=== PATIENT | male | born 1995 | race Caucasian/White ===

== ENCOUNTER 2024-11-30 19:31 | Emergency (ER) | payer OTHER, SELFPAY ==
[2024-11-30] VITALS (7 sets, daily range): BP systolic 115–134; BP diastolic 66–90; PULSE 70–102; RESP 15–18; TEMP 36.7; O2SAT 93–99; BMI 27.8
--- NOTE | 2024-11-30 20:45 | CTR_ITS ---
PROCEDURE INFORMATION: Exam: CT Abdomen And Pelvis With Contrast Exam date and time: 11/30/2024 9:17 PM Age: 29 years old Clinical indication: Condition or disease; Other: Esbl; Additional info: Abdominal pain; Bloody stools, reported bloody emesis TECHNIQUE: Imaging protocol: Computed tomography of the abdomen and pelvis with contrast. Radiation optimization: All CT scans at this facility use at least one of these dose optimization techniques: automated exposure control; mA and/or kV adjustment per patient size (includes targeted exams where dose is matched to clinical indication); or iterative reconstruction. Contrast material: OMNI 350; Contrast volume: 100 ml; Contrast route: INTRAVENOUS (IV); COMPARISON: No relevant prior studies available. RADIATION DOSE METRICS: Total DLP (mGy-cm): 828.76 FINDINGS: Lungs: Bibasilar atelectasis. Liver: Hepatic steatosis. Gallbladder and biliary ducts: Normal. No calcified stones. No ductal dilation. Pancreas: Normal. No ductal dilation. Spleen: Normal. No splenomegaly. Adrenal glands: Normal. No mass. Kidneys and ureters: Left kidney nonobstructing calyceal stone. Stomach and bowel: Mid sigmoid colon wall thickening, please correlate for colitis. Gastric wall thickening, please correlate for gastritis. Appendix: No evidence of appendicitis. Intraperitoneal space: Unremarkable. No free air. No significant fluid collection. Vasculature: Unremarkable. No abdominal aortic aneurysm. Lymph nodes: Unremarkable. No enlarged lymph nodes. Urinary bladder: Unremarkable as visualized. Reproductive: Unremarkable as visualized. Bones/joints: Unremarkable. No acute fracture. Soft tissues: Unremarkable. CT/CT abdomen pelvis w con* [id number] IMPRESSION: 1. Mid sigmoid colon wall thickening, please correlate for colitis. 2. Gastric wall thickening, please correlate for gastritis. 3. Bibasilar atelectasis. 4. Hepatic steatosis. 5. Left kidney nonobstructing calyceal stone.
--- NOTE | 2024-11-30 20:46 | ED_ITS ---
HPI - Abdominal Pain 2 General: Chief Complaint: Abdominal Pain Stated Complaint: vomiting and urinating blood, bloody stool Time Seen by Provider: 11/30/24 20:22 Source: patient Mode of arrival: ambulatory Limitations: no limitations History of Present Illness: Patient is a 29-year-old male here for a plethora of medical complaints. He first off starts by telling me that earlier last month he was diagnosed with an ESBL acute cystitis and was apparently hospitalized for this. 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 He states since discharge he has been following up with his employment case manager through [employer] and does have follow up with urology for cystoscopy. He states this morning he had 6 episodes of bright red blood per rectum that he quantifies as a half a cup per bowel movement. He also states he has been having (starting today also) bright red bloody emesis-approximately 6 episodes. He is having lower abdominal pain. He contacted his laborer who was concerned he could be septic so told him to come to the emergency department. He is not on anticoagulation. Denies NSAID use or alcohol use. He has no history of GI bleeds. His vital signs are completely normal upon arrival. He also has complaints of chest pain or shortness of breath. MD elicited complaint: abdominal pain Onset (ago): hour(s) Pain Consistency: constant Location: Diffuse Severity: moderate Quality: cramping and sharp Radiation: none Migration to: no migration Exacerbating factors: nothing Relieving factors: nothing Associated Symptoms: Reports hematochezia, hematemesis and vomiting; Denies chills, diarrhea, dysuria, fever(s), heartburn, hematuria, nausea and syncope Related Data Previous Rx's ?Medication ?Instructions ?Recorded amoxicillin 875 mg-potassium 1 tab PO BID #14 tabs 08/25 clavulanate 125 mg tablet pantoprazole 40 mg tablet,delayed 40 mg PO DAILY 4 wejustus tx #28 tabs 11/30/24 release (Protonix) Allergies Allergy/AdvReac Type Severity Reaction Status Date / Time No Known Allergies Allergy Verified 11/30/24 19:44 Review of Systems 2 Const: Denies: fever(s), chills, body aches, fatigue or malaise Eyes: Denies: change in vision or blurry vision Card: Reports: chest pain; Denies: palpitations, irregular heart rhythm, lightheadedness, syncope or dyspnea on exertion Resp: Reports: dyspnea; Denies: productive cough or pain on inspiration GI: Reports: abdominal pain, vomiting, hematemesis and hematochezia; Denies: nausea, heartburn or diarrhea : Denies: flank pain, difficulty urinating, dysuria, urinary frequency, urinary urgency, urinary hesitancy or hematuria Musc: Denies: neck pain, back pain, extremity pain, extremity swelling or joint pain Skin/Breast: Denies: rash Neuro: Denies: headache(s), numbness in extremities, weakness in extremities or sensory changes Physical Exam 2 Const: COMMON NORMALS: no acute distress, average body habitus, patient oriented x3, no limitations, healthy appearing, alert and well nourished G ENERAL APPEARANCE: cooperative ORIENTATION/CONSCIOUSNESS: Yes awake, Yes oriented to person, Yes oriented to place and Yes oriented to time HENMT: COMMON NORMALS: normocephalic and atraumatic HEAD & SCALP: normal to inspection, normocephalic and atraumatic Eye: GENERAL EYE: appearance normal, both eyes and all related structures and normal light reflex DIRECT OPHTHALMOSCOPY: Yes normal light reflex Neck/C-Spine: COMMON NORMALS: full ROM, no lymphadenopathy, supple and no meningeal signs Chest: COMMONS NORMALS: normal inspection of the chest Resp: COMMON NORMALS: normal respiratory effort and clear to auscultation bilaterally AUSCULTATION: clear to auscultation bilaterally Cardio: COMMON NORMALS: regular rate and regular rhythm RATE: regular rate RHYTHM: regular rhythm GI: COMMON NORMALS: Normal to inspection, nondistended, normoactive bowel sounds present, Soft to palpation, No hepatosplenomegaly present and no masses INSPECTION: Yes normal to inspection AUSCULTATION: Yes normoactive bowel sounds PALPATION: Yes Soft to palpation, Yes Tenderness to palpation present (GI) (across lower abdomen), No Guarding due to palpation present (GI), No Rigid due to palpation and Yes No hepatosplenomegaly present RECTAL EXAM: Yes heme positive stool (faintly ) trace and Yes hemorrhoids (multiple non-thrombosed external hemorrhoids) : COMMON NORMALS: Yes no CVA tenderness BLADDER/KIDNEY EXAM: Yes no CVA tenderness Back/Pelvis: COMMON NORMALS: no CVA tenderness and thoracic and lumbar spine normal to inspection Extremity: COMMON NORMALS: normal to inspection GENERAL: Yes normal exam except as noted Neuro: SANDRINE COMA SCALE: document GCS findings Sandrine coma scale eye opening: Spontaneous Sandrine coma scale verbal response: Orientated Sandrine coma scale motor response: Obey commands Sandrine coma scale total score: 15 COMMON NORMALS: patient oriented x3, moves all extremities, no focal motor deficits and no sensory deficits noted SENSORIUM/ORIENTATION: Yes alert, Yes oriented to person, Yes oriented to place and Yes oriented to time MENINGEAL SIGNS: Yes no meningeal signs Skin: COMMON NORMALS: no rashes or lesions noted GENERAL SKIN EXAM: no rashes or lesions noted Course 2 Vital Signs: Vital signs: Vital Signs Temperature 98.1 F 11/30/24 19:40 Pulse Rate 93 11/30/24 19:40 Respiratory Rate 16 11/30/24 19:40 Blood Pressure 125/82 11/30/24 19:40 Pulse Oximetry 99 11/30/24 19:40 Oxygen Delivery Me thod Room Air 11/30/24 19:40 MDM - Abdominal Pain Medical Decision Making Patient has clinically appeared in absolutely no acute distress during his ED stay. His vital signs have been completely normal. He has not had a single episode of hematemesis or hematochezia. He does have some blood work from his last hospitalization in early October. His hemoglobin at that time was 13.9 which is exactly what it is today. He does have a very faintly positive Hemoccult. He does have multiple external nonthrombosed hemorrhoids which I suspect is probably the source of his bleeding although his CT scan does mention some mild colitis. He is also reporting hematemesis-again has not had any episodes here. CT scan did mention some degree of gastric wall thickening with correlation for gastritis. He denies anti-inflammatory use or alcohol. Remainder of blood work overall is unremarkable. His UA with color interference as he has been taking Azo-he is not having UTI-like symptoms/will attempt culture. At this time I will place him on medications for possible colitis/gastritis and have him follow-up with GI/general surgery for endoscopy/colonoscopy evaluation. He was given strict return precautions. He already has follow-up scheduled with urology as well as primary care. Medical Records I reviewed the patient's medical records. Lab Data I reviewed the patient's lab results. 11/30/24 20:20 11/30/24 20:20 Labs/Radiology: Radiology Impressions Abdomen/Pelvis CT 11/30/24 20:45 IMPRESSION: 1. Mid sigmoid colon wall thickening, please correlate for colitis. 2. Gastric wall thickening, please correlate for gastritis. 3. Bibasilar atelectasis. 4. Hepatic steatosis. 5. Left kidney nonobstructing calyceal stone. Laboratory Results WBC 14.81 10^3/uL (3.29-11.43) H 11/30/24 20:20 RBC 4.49 10^6/uL (3.85-5.65) 11/30/24 20:20 Hgb 13.90 g/dL (11.27-16.99) 11/30/24 20:20 Hct 42.3 % (37-53) 11/30/24 20:20 MCV 94.2 fl (82-101) 11/30/24 20:20 MCH 31.0 pg (27-33) 11/30/24 20:20 MCHC 32.9 g/dL (30-55) 11/30/24 20:20 RDW 13.7 % (12.1-15.1) 11/30/24 20:20 Plt Count 317 10^3/cmm (157-399) 11/30/24 20:20 MPV 8.9 fL (7.4-10.4) 11/30/24 20:20 Neut % (Auto) 72.6 % 11/30/24 20:20 Lymph % (Auto) 19.3 % 11/30/24 20:20 [place] % (Auto) 6.7 % 11/30/24 20:20 Eos % (Auto) 0.5 % 11/30/24 20:20 Baso % (Auto) 0.4 % 11/30/24 20:20 Neut # (Auto) 10.75 10^3/uL (1.8-7.7) H 11/30/24 20:20 Lymph # (Auto) 2.9 10^3/uL (0.8-4.8) 11/30/24 20:20 [place] # (Auto) 1.0 10^3/uL (0.2-0.9) H 11/30/24 20:20 Eos # (Auto) 0.1 10^3/uL (0.0-0.8) 11/30/24 20:20 Baso # (Auto) 0.1 10^3/uL (0.0-0.1) 11/30/24 20:20 Nucleated RBC % (auto) 0 % 11/30/24 20:20 Nucleated RBCs # 0.0 /100WBC 11/30/24 20:20 PT 12.90 SECONDS (12.1-14.9) 11/30/24 20:20 INR 0.91 (0.8-1.2) 11/30/24 20:20 Sodium 141 mmol/L (136-145) 11/30/24 20:20 Potassium 4.0 mmol/L (3.5-5.1) 11/30/24 20:20 Chloride 103 mmol/L (98-107) 11/30/24 20:20 Carbon Dioxide 25 mmol/L (22-29) 11/30/24 20:20 Anion Gap 17.0 (5-19) 11/30/24 20:20 BUN 11 mg/dL (6-20) 11/30/24 20:20 Creatinine 0.9 mg/dL (0.7-1.2) 11/30/24 20:20 GFR Calculation 98.4 mL/min (90-130) 11/30/24 20:20 Glucose 95 mg/dL (65-115) 11/30/24 20:20 Calculated Osmolality 291 mOsm/kg (285-295) 11/30/24 20:20 Calcium 9.0 mg/dL (8.5-10.5) 11/30/24 20:20 Total Bilirubin 0.2 mg/dL (0.15-1.2) 11/30/24 20:20 AST 17 U/L (0-40) 11/30/24 20:20 ALT 24 U/L (0-41) 11/30/24 20:20 Alkaline Phosphatase 86 U/L (40-130) 11/30/24 20:20 Troponin T Baseline < 6 ng/L (0-15) 11/30/24 20:20 Troponin T 120 Minute < 6.0 ng/L (0-15) 11/30/24 22:16 Delta Troponin T 0 ABS# (0-10) 11/30/24 22:16 Total Protein 7.1 g/dL (6.6-8.7) 11/30/24 20:20 Albumin 4.3 g/dL (3.5-5.2) 11/30/24 20:20 Globulin 2.8 g/dL (1.3-4.6) 11/30/24 20:20 Lipase 27 U/L (13-60) 11/30/24 20:[address] [place] (Yellow) A 11/30/24 22:20 Urine Appearance Clear (CLEAR) 11/30/24 22:20 Urine pH 5.5 (5-7) 11/30/24 22:20 Ur Specific [place] 1.074 (1.005-1.030) H 11/30/24 22:20 Urine Protein 1+ (Negative) A 11/30/24 22:20 Urine Glucose (UA) Negative (Normal) 11/30/24 22:20 Urine Ketones Negative (Negative) 11/30/24 22:20 Urine Blood Non-haemolysed trace (Negative) 11/30/24 22:20 Urine Nitrate Positive (Negative) A 11/30/24 22:20 Urine Bilirubin 1+ (Negative) H 11/30/24 22:20 Urine Urobilinogen 1.0 mg/dL (Negative) 11/30/24 22:20 Ur Leukocyte Esterase 1+ (Negative) A 11/30/24 22:20 Urine RBC 3-5 /hpf (0-2) 11/30/24 22:20 Urine WBC 6-10 /hpf (0-5) 11/30/24 22:20 Ur Squamous Epith Cells 0-5 /hpf (0-5) 11/30/24 22:20 Amorphous Sediment Not Reportable 11/30/24 22:20 Urine Bacteria None seen /hpf (NONE) 11/30/24 22:20 Hyaline Casts 0-4 /lpf H 11/30/24 22:20 All radiology interpretation(s) finalized by discharge Discharge Plan Discharge Patient Disposition: Home Clinical Impression: Colitis Gastritis Qualifiers: Gastritis type: unspecified gastritis Chronicity: acute Gastritis bleeding: w ith bleeding Qualified Code(s): K29.01 - Acute gastritis with bleeding Condition: Stable Prescriptions: New pantoprazole [Protonix] 40 mg tablet,delayed release (DR/EC) 40 mg PO DAILY 28 Days Qty: 28 0RF amoxicillin-pot clavulanate 875-125 mg tablet 1 tab PO BID Qty: 14 0RF Discharge Orders: Discharge ED (Routine); Ordered 11/30/24 Ordered By: Eliza Pfeiffer Patient Instructions: Gastritis (DC), Hemorrhoids (DC), Colitis (ED) Activity Restrictions/Additional Instructions: As we discussed, I will place a referral for GI/general surgery for evaluation for an endoscopy/colonoscopy for further evaluation of your bleeding. They can also evaluate your hemorrhoids and offer any further treatment options. We discussed stool softeners and stool consistency to avoid straining. We will place you on medications to help with the gastritis/colitis findings on your CT scan today. Continue plan to follow-up with urology. You may return to the emergency department for worsening bleeding, lightheadedness, dizziness, fevers, worsening or severe abdominal pain, generally feeling worse or unwell, or any other concerns you may have. Print Language: Taiwanese Coding Level of Care Code ED Roof Bolter Operator for Eda Reyez
[2024-11-30 20:53] LABS: Basophils # 0.1 10^3/uL (0.0-0.1); Basophils % 0.4 %; Eosinophils # 0.1 10^3/uL (0.0-0.8); Eosinophils % 0.5 %; Hematocrit 42.3 % (37-53); Lymphocytes # 2.9 10^3/uL (0.8-4.8); Lymphocytes % 19.3 %; Mean Corpuscular HGB Conc 32.9 g/dL (30-55); Mean Corpuscular Volume 94.2 fl (82-101); Mean Platelet Volume 8.9 fL (7.4-10.4); Monocytes % 6.7 %; Neutrophils # 10.75 10^3/uL (1.8-7.7); Neutrophils % 72.6 %; Nucleated Red Blood Cells % 0 %; Platelet Count 317 10^3/cmm (157-399); Red Blood Count 4.49 10^6/uL (3.85-5.65); Red Cell Distribution Width 13.7 % (12.1-15.1); White Blood Count 14.81 10^3/uL (3.29-11.43)
[2024-11-30 21:04] LABS: INR 0.91 (0.8-1.2)
[2024-11-30 21:10] LABS: Alanine Aminotransferase 24 U/L (0-41); Albumin Level 4.3 g/dL (3.5-5.2); Alkaline Phosphatase 86 U/L (40-130); Aspartate Amino Transferase 17 U/L (0-40); Blood Urea Nitrogen 11 mg/dL (6-20); Carbon Dioxide 25 mmol/L (22-29); Chloride 103 mmol/L (98-107); Creatinine Clr Calc Pharmacy 137.0359; Globulin 2.8 g/dL (1.3-4.6); Glomerular Filtration Rate 98.4 mL/min (90-130); Glucose 95 mg/dL (65-115); Lipase 27 U/L (13-60); Osmolality Calculated 291 mOsm/kg (285-295); Sodium 141 mmol/L (136-145); Total Bilirubin 0.2 mg/dL (0.15-1.2); Total Protein 7.1 g/dL (6.6-8.7); Troponin(5th) Baseline < 6 ng/L (0-15)
[2024-11-30] MEDS: iohexol 350 mg/mL 500 mL Btl (per mL) IV (21:13)
[2024-11-30] MEDS: sodium chloride 0.9% 1,000 ML 999 ML IV (21:53)
--- NOTE | 2024-11-30 22:22 | ECG_ITS ---
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 Measurements Intervals [place] Rate: 67 P: 36 CA: 152 QRS: 35 QRSD: 91 T: 22 QT: 400 QTc: 425 Interpretive Statements SINUS RHYTHM WITH SINUS ARRHYTHMIA No previous ECG available for comparison Electronically Signed On 12-01-2024 11:34:53 CDT by Bruce Gallardo M.D. [email or web address]
[2024-11-30 22:35] LABS: Bilirubin Urine 1+ (Negative); Blood Urine Non-haemolysed trace (Negative); Glucose Urine UA Negative (Normal); Ketones Urine Negative (Negative); Leukocyte Esterase Urine 1+ (Negative); Nitrate Urine Positive (Negative); Protein Urine 1+ (Negative); Urine Appearance Clear (CLEAR); pH Urine 5.5 (5-7)
[2024-11-30 22:37] LABS: Add Urine Microscopic? YES; Bacteria Urine None Seen /hpf; Hyaline Casts Urine 0-4 /lpf; Squamous Epithelial Cell Urine 0-5 /hpf (0-5)
[2024-11-30 22:42] LABS: Troponin 5 2HR < 6.0 ng/L (0-15); Troponin 5 2HR Delta 0 ABS# (0-10)
[2024-11-30 22:45] LABS: Specific Gravity, Urine 1.074 (1.005-1.030); Urine Color Orange (Yellow)
--- NOTE | 2024-12-02 07:35 | DCPLANNER ---
messaged gen surgery for er f/u
== END 2024-11-30 23:41 | disposition home or self-care (01) ==
PROVIDERS: Emergency Medicine; Emergency Provider Physician Assistant
DX: K52.9 Noninfective gastroenteritis and colitis, unspecified (principal); K29.01 Acute gastritis with bleeding
CPT/HCPCS: 36415; 74177; 80053; 81001; 83690; 84484; 85025; 85610; 87086; 93005; 99285; J7030

== ENCOUNTER 2024-12-29 10:46 | Day surgery (SDC) | payer OTHER, SELFPAY ==
[2024-12-29 10:58] VITALS: BP 141/64; PULSE 77; RESP 18; TEMP 36.8; O2SAT 97
--- NOTE | 2024-12-29 11:29 | ANES.PREANE2 ---
Pre-Anesthetic Assessment Height/Weight: Height 5 ft 11 in Weight 200 lb Temp Pulse Resp BP Pulse Ox O2 Del Method 98.2 F 77 18 141/64 97 Room Air 12/29/24 10:58 12/29/24 10:58 12/29/24 10:58 12/29/24 10:58 12/29/24 10:58 12/29/24 10:58 Preop Diagnosis: GERD Operation Date: 12/29/24 12:30 Proposed Procedures p EGD with Biopsy [id number] G0105, K29.01 R12 K92.1(Not Applicable) - Arden Xiong MD s Colonoscopy(Not Applicable) - Arden Xiong MD Was Beta Tristan taken within 24 hours: N/A Was Clonidine taken within 24 hours: N/A Last intake: Intake Last Liquid Date 12/28/24 Last Liquid Time 18:00 Last Solid Date 12/27/24 Last Solid Time 17:00 Social Tobacco and No alcohol Exam alert, oriented x 3, clear to auscultation bilaterally and regular rate & rhythm Airway Submandibular: within normal limits Cervical ROM: within normal limits Mallampati: Class II Dentition: full Anesthetic Plan ASA status: 2 Anesthesia: MAC Other: No prior history of anesthesia Completed bowel prep History of GERD, diet controlled Current smoker METs greater than 4 Plan for MAC anesthesia Medications/Allergies Home Medications ?Medication ?Instructions ?Recorded ?Confirmed ?Last Taken ?Type No Known Home Medications 12/28/24 12/28/24 Unknown History Allergies Allergy/AdvReac Type Severity Reaction Status Date / Time No Known Allergies Allergy Verified 12/24/24 08:56 Current Medications Generic Name Dose Route Start Last Admin Trade Name Freq PRN Reason Stop Dose Admin Sodium Chloride 1,000 mls @ 15 mls/hr 12/29/24 10:53 12/29/24 11:05 Sodium Chloride 0.9% IV 12/30/24 10:52 15 mls/hr .Q24H PRN Administration COLONOSCOPY FLUIDS PFSH Anesthesia Social History Smoking and tobacco/nicotine status: never used tobacco/nicotine
--- NOTE | 2024-12-29 11:45 | W.PM.OPSUD ---
Surgery/Procedure H&P Update DATE OF PROCEDURE: December 29, 2024 DATE H&P PERFORMED: 12/11/24 H&P UPDATE INFORMATION: I have reviewed H&P completed within last 30 days, I have examined patient prior to procedure and No changes to prior documentation PREOP DIAGNOSIS: GERD PLANNED PROCEDURE: Operation Date: 12/29/24 12:30 Proposed Procedures p EGD with Biopsy [id number] G0105, K29.01 R12 K92.1(Not Applicable) - Arden Xiong MD s Colonoscopy(Not Applicable) - Arden Xiong MD
[2024-12-29 12:08] VITALS: BP 112/66; PULSE 94; RESP 16; TEMP 36.3; O2SAT 92
[2024-12-29 12:27] VITALS: BP 123/74; PULSE 74; RESP 16; O2SAT 93
[2024-12-29 12:33] VITALS: BP 127/74; PULSE 73; RESP 16; O2SAT 94
== END 2024-12-29 13:00 | disposition home or self-care (01) ==
PROVIDERS: Visit Provider Student in an Organized Health Care Education/Training Program
PROC: 0DJ08ZZ Inspection of Upper Intestinal Tract, Via Natural or Artificial Opening Endoscopic (ICD-10-PCS; principal; 2024-12-29 12:30)
PROC: 0DJD8ZZ Inspection of Lower Intestinal Tract, Via Natural or Artificial Opening Endoscopic (ICD-10-PCS; CPT 45378; 2024-12-29 12:30)
DX: K64.4 Residual hemorrhoidal skin tags (principal); K62.1 Rectal polyp; K29.50 Unspecified chronic gastritis without bleeding; K29.80 Duodenitis without bleeding; K21.9 Gastro-esophageal reflux disease without esophagitis; F17.200 Nicotine dependence, unspecified, uncomplicated
CPT/HCPCS: 43239; 45380; 88305; J2250; J2704; J7030

== ENCOUNTER 2025-01-13 10:07 | Outpatient (CLI) | payer OTHER, SELFPAY ==
--- NOTE | 2025-01-13 10:12 | CT_ITS ---
WS: [id number] CT ABDOMEN AND PELVIS WITH AND WITHOUT CONTRAST HISTORY: ABDOMINAL PAIN, continues intermittently with bloody stools. TECHNIQUE: Unenhanced 5 mm axial imaging first performed through the abdomen. Post contrast imaging through the abdomen and pelvis. Oral contrast has been provided. Sagittal and coronal reformats are submitted. All CT scans at [facility] use at least one of these dose optimization techniques: automated exposure control; mA and/or kV adjustment per patient size (includes targeted exams where dose is matched to clinical indication); or iterative reconstruction. CONTRAST: Omnipaque 350; 95 mL IV. DLP: 1399.60 mGy.cm COMPARISON: 11/30/2024 Dependent changes at the lung bases. Normal size heart. Small hiatal hernia. Normal liver, gallbladder and spleen. No intrahepatic duct dilatation. Normal pancreas and adrenal glands. No renal obstruction. There are nonobstructing 2 mm calcification in the mid LEFT kidney. Normal aorta. Stomach is well distended with oral contrast. No wall thickening. No small bowel obstruction. Normal appendix. Significant interval improvement in the circumferential sigmoid wall thickening. There is still small amount of wall thickening in the sigmoid along with several diverticula. No pericolonic in flammation. No ascites or adenopathy. Small umbilical hernia contains fat only. Small inguinal lymph nodes with the largest measuring 18 mm on the RIGHT. No destructive bone lesions. CT/CT abdomen pelvis wo/w [id number] IMPRESSION: 1. No GI tract obstruction. 2. No residual gastritis. 3. Marked improvement in the circumferential sigmoid wall thickening. There ar e a few small diverticula present in the sigmoid colon. No evidence for acute d iverticulitis. 4. Normal appendix. 5. No ascites. 6. Bibasilar subsegmental atelectasis, unchanged. 7. Nonobstructing LEFT renal calcification. 8. As the patient's bloody stools and hematemesis persists consider endoscopy evaluation.
[2025-01-13] MEDS: iohexol 350 mg/mL 500 mL Btl (per mL) PO (10:51)
[2025-01-13] MEDS: iohexol 350 mg/mL 500 mL Btl (per mL) IV (11:04)
== END 2025-01-13 10:08 | disposition home or self-care (01) ==
LOC: RAD 10:08
PROVIDERS: Visit Provider Internal Medicine
DX: R10.9 Unspecified abdominal pain (principal); Z86.19 Personal history of other infectious and parasitic diseases; K92.1 Melena; N20.0 Calculus of kidney; N28.89 Other specified disorders of kidney and ureter; J98.11 Atelectasis; K57.31 Diverticulosis of large intestine without perforation or abscess with bleeding
CPT/HCPCS: 74178

== ENCOUNTER 2025-01-28 11:30 | Oncology outpatient (recurring) (ONCR) | payer OTHER, SELFPAY ==
[2025-01-27] MEDS: ertapenem 1,000 mg SDV 1000 MG IVP (11:54)
[2025-01-27 12:08] VITALS: BP 141/76; PULSE 78; TEMP 36.6; O2SAT 95
[2025-01-28 11:30] VITALS: BP 121/75; PULSE 74; RESP 18; TEMP 36.7; O2SAT 94
[2025-01-28] MEDS: ertapenem 1,000 mg SDV 1000 MG IVP (11:39)
== END 2025-01-28 23:59 | disposition home or self-care (01) ==
PROVIDERS: PCP Physical Medicine & Rehabilitation Sports Medicine; Visit Provider Internal Medicine
DX: Z53.9 Procedure and treatment not carried out, unspecified reason (principal); Z16.12 Extended spectrum beta lactamase (ESBL) resistance; K57.90 Diverticulosis of intestine, part unspecified, without perforation or abscess without bleeding
CPT/HCPCS: 96374; J1335

== ENCOUNTER 2025-01-29 08:43 | Oncology outpatient (recurring) (ONCR) | payer OTHER, SELFPAY ==
[2025-01-29] MEDS: ertapenem 1,000 mg SDV 1000 MG IVP (09:11)
[2025-01-29 10:55] VITALS: BP 112/64; PULSE 112; RESP 20; TEMP 36.4; O2SAT 95
== END 2025-01-29 09:55 | disposition home or self-care (01) ==
PROVIDERS: PCP Physical Medicine & Rehabilitation Sports Medicine; Visit Provider Internal Medicine
DX: Z16.12 Extended spectrum beta lactamase (ESBL) resistance (principal); K57.90 Diverticulosis of intestine, part unspecified, without perforation or abscess without bleeding; Z79.899 Other long term (current) drug therapy
CPT/HCPCS: 96374; J1335

== ENCOUNTER 2025-01-29 09:56 | Emergency (ER) | payer OTHER, SELFPAY ==
--- NOTE | 2025-01-29 09:58 | W.ED.GENADLT ---
HPI - General Adult General: Chief complaint: General Medical Stated complaint: picc line issues Time Seen by Provider: 01/29/25 09:58 History of Present Illness: 29-year-old male presents to the emergency room complaining difficulty with the PICC line. He has ESBL from urinary source. PICC line was placed on January 27 in [place]. He states he gets pain up in the chest the cold pressure. He states when the medicines are infused he gets short of breath. Patient states he is on IV antibiotics for an ESBL infection that started in his kidneys and spread to his liver and his bladder. He states the PICC line he was told in his and his aortic valve. Associated symptoms: Deny chest pain, dyspnea or rash Related Data Home Medications ?Medication ?Instructions ?Recorded ?Confirmed No Known Home Medications 12/28/24 01/11/25 Allergies Allergy/AdvReac Type Severity Reaction Status Date / Time No Known Allergies Allergy Verified 01/29/25 10:06 Review of Systems Const: Denies: fever(s) or chills Card: Denies: chest pain Resp: Denies: dyspnea GI: Denies: abdominal pain : Denies: dysuria, urinary frequency or urinary urgency Musc: Denies: neck pain or back pain Skin/Breast: Denies: rash PFSH ED PFSH: Social History Smoking and tobacco/nicotine status: never used tobacco/nicotine Physical Exam Const: COMMON NORMALS: no acute distress GENERAL APPEARANCE: cooperative and comfortable ORIENTATION/CONSCIOUSNESS: Yes awake, Yes oriented to person, Yes oriented to place and Yes oriented to time HENMT: COMMON NORMALS: normocephalic, atraumatic and hearing grossly normal bilaterally HEAD & SCALP: normocephalic and atraumatic Resp: COMMON NORMALS: normal respiratory effort, No retractions, No use of accessory muscles and clear to auscultation bilaterally AUSCULTATION: clear to auscultation bilaterally Cardio: COMMON NORMALS: regular rate, regular rhythm and No murmurs present (Cardio) RATE: regular rate RHYTHM: regular rhythm GI: COMMON NORMALS: Soft to palpation and No hepatosplenomegaly present AUSCULTATION: Yes normoactive bowel sounds PALPATION: Yes Soft to palpation, No Tenderness to palpation present (GI), No Guarding due to palpation present (GI) and Yes No hepatosplenomegaly present Extremity: COMMON NORMALS: normal to inspection, capillary refill normal, no clubbing, cyanosis or edema, no calf tenderness and no pedal edema Neuro: SENSORIUM/ORIENTATION: Yes oriented to person, Yes oriented to place and Yes oriented to time Skin: COMMON NORMALS: no rashes or lesions noted GENERAL SKIN EXAM: no rashes or lesions noted Course Vital Signs: Vital signs: Vital Signs Temperature 98.7 F 01/29/25 09:59 Pulse Rate 82 01/29/25 09:59 Respiratory Rate 16 01/29/25 09:59 Blood Pressure 119/81 01/29/25 09:59 Pulse Oximetry 95 01/29/25 09:59 Oxygen Delivery Me thod Room Air 01/29/25 09:59 MDM - General Adult Medical Decision Making PICC line entrance site looks good there is no sign of drainage at the entrance sites it is not pulled out. Chest x-ray shows terminates appropriately at the junction of the right atrium and superior vena cava. At this point the nurse was able to pull blood and flush without any difficulty. I think he can continue to use at this time follow-up with prescribed antibiotics. Medical Records I reviewed the patient's medical records. Lab Data I reviewed the patient's lab results. Radiology Impressions Chest X-Ray 01/29/25 10:16 IMPRESSION: 1. Successful right-sided PICC line placement. 2. Mild cardiomegaly without overt congestive heart failure. All radiology interpretation(s) finalized by discharge Discharge Plan Discharge Patient Disposition: Home Clinical Impression: Status post PICC central line placement Condition: Stable Prescriptions: No Action No Known Home Medications Discharge Orders: Discharge ED (Routine); Ordered 01/29/25 Ordered By: Kobe Elliott Referrals: Isaias Weber DO [Primary Care Provider, Unknown] Patient Instructions: Opioid Safety, Pain Management, Patient Portal & [place] Instructions Activity Restrictions/Additional Instructions: Thank you for choosing [facility] for your healthcare needs today. It is very important that you follow up as instructed or that you return to the Emergency Department should you have concerns or if your condition changes or worsens in any way. You were seen in the emergency room with concerns regarding your PICC line. We were able to draw blood and flush through the PICC line without any difficulty. Chest x-ray shows good placement of the PICC line that terminates in the superior vena cava at the right atrium. At this point the PICC line is functioning well and can continue to be used follow-up with your doctors as scheduled and continue the course of antibiotics as previously prescribed. Print Language: Urdu Coding Level of Care Code ED Zipper Repairer for Eda Reyez
[2025-01-29 09:59] VITALS: BP 119/81; PULSE 82; RESP 16; TEMP 37.1; O2SAT 95; BMI 27.8
--- NOTE | 2025-01-29 10:16 | XRR_ITS ---
PROCEDURE INFORMATION: Exam: XR Chest Exam date and time: 01/29/2025 10:24 AM Age: 29 years old Clinical indication: Device placement; Picc; Additional info: Picc line placement TECHNIQUE: Imaging protocol: Radiologic exam of the chest. Views: 1 view. COMPARISON: CT abdomen pelvis wo/w [id number] 01/13/2025 11:01 AM FINDINGS: Tubes, catheters and devices: The right-sided PICC line is seen extending to the superior aspect of the right atrium. No complication from line placement is evident. Lungs: See Heart/Mediastinum finding. Pleural spaces: Unremarkable. No pleural effusion. No pneumothorax. Heart/Mediastinum: There is slight cardiomegaly, unchanged from prior CT. No pulmonary vascular congestion is seen. Bones/joints: Unremarkable. XR/XR chest 1V portable [id number] IMPRESSION: 1. Successful right-sided PICC line placement. 2. Mild cardiomegaly without overt congestive heart failure.
--- NOTE | 2025-01-29 10:23 | PC.NURSE ---
pt reports 45cm was length of placement, denies PICC moving externally. R PICC is at 0cm external, no redness/swelling/warmth/bleeding noted to site, pt denies pain in R arm when flushing. this nurse was able to flush each lumen, slow/sluggish flush but positive blood return from both lumens. upon flushing pt c/o some pain noted to R axilla with radiation to mid-clavicle. pt denies pain without flushing. pt does state this has been normal since PICC placement; was unsure if PICC team had difficulty passing axilla, but did state they considered placing sub-clavian central line.
== END 2025-01-29 11:49 | disposition home or self-care (01) ==
PROVIDERS: Emergency Provider Family Medicine; PCP Physical Medicine & Rehabilitation Sports Medicine
DX: T82.598A Other mechanical complication of other cardiac and vascular devices and implants, initial encounter (principal); Z45.2 Encounter for adjustment and management of vascular access device; X58.XXXA Exposure to other specified factors, initial encounter
CPT/HCPCS: 71045; 99283

== ENCOUNTER 2025-02-16 11:26 | Outpatient (CLI) | payer OTHER, SELFPAY ==
[2025-02-16 12:44] LABS: Hematocrit 45.2 % (37-53); Hemoglobin 14.90 g/dL (11.27-16.99); Mean Corpuscular HGB Conc 33.0 g/dL (30-55); Mean Corpuscular Hemoglobin 30.5 pg (27-33); Mean Corpuscular Volume 92.6 fl (82-101); Nucleated Red Blood Cells % 0 %; Platelet Count 326 10^3/cmm (157-399); Red Blood Count 4.88 10^6/uL (3.85-5.65); White Blood Count 11.61 10^3/uL (3.29-11.43)
[2025-02-16 12:55] LABS: Anion Gap 16.1 (5-19); Blood Urea Nitrogen 10 mg/dL (6-20); Calcium 8.8 mg/dL (8.5-10.5); Carbon Dioxide 23 mmol/L (22-29); Chloride 103 mmol/L (98-107); Glucose 102 mg/dL (65-115); Osmolality Calculated 285 mOsm/kg (285-295); Potassium 4.1 mmol/L (3.5-5.1); Sodium 138 mmol/L (136-145)
== END 2025-02-16 11:27 | disposition home or self-care (01) ==
PROVIDERS: PCP Physical Medicine & Rehabilitation Sports Medicine; Visit Provider Internal Medicine
DX: D72.829 Elevated white blood cell count, unspecified (principal)
CPT/HCPCS: 36415; 80048; 85025; 85651; 86140; 87040

== ENCOUNTER 2025-02-18 19:51 | Emergency (ER) | payer OTHER, SELFPAY ==
--- NOTE | 2025-02-18 19:56 | ECG_ITS ---
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 Measurements Intervals [place] Rate: 85 P: 39 CA: 158 QRS: 24 QRSD: 89 T: 12 QT: 374 QTc: 446 Interpretive Statements SINUS RHYTHM Compared to ECG 11/30/2024 22:22:38 Sinus arrhythmia no longer present Electronically Signed On 02-20-2025 08:43:10 CDT by Bruce Gallardo M.D. [email or web address] [id number]
--- NOTE | 2025-02-18 19:56 | XRR_ITS ---
PROCEDURE INFORMATION: Exam: XR Chest Exam date and time: 02/18/2025 8:15 PM Age: 29 years old Clinical indication: Pain; Chest pressure; Additional info: Cp TECHNIQUE: Imaging protocol: Radiologic exam of the chest. Views: 1 view. COMPARISON: CR XR chest 1V portable [id number] 01/29/2025 10:24 AM FINDINGS: Tubes, catheters and devices: Right-sided peripherally inserted central venous catheter with its tip at the cavoatrial junction. Lungs: Unremarkable. No consolidation. Pleural spaces: Unremarkable. No pleural effusion. No pneumothorax. Heart/Mediastinum: The cardiomediastinal silhouette is stable and mildly enlarged. Bones/joints: Unremarkable. XR/XR chest 1V portable [id number] IMPRESSION: 1. Stable mild cardiomegaly. No acute cardiopulmonary abnormality. 2. Stable positioning of right-sided PICC line.
[2025-02-18 19:59] VITALS: BP 123/79; PULSE 80; RESP 16; TEMP 36.4; O2SAT 99; BMI 27.6
--- NOTE | 2025-02-18 20:06 | ECG_ITS ---
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 Measurements Intervals [place] Rate: 85 P: 39 IA: 158 QRS: 24 QRSD: 89 T: 12 QT: 374 QTc: 446 Interpretive Statements SINUS RHYTHM Compared to ECG 11/30/2024 22:22:38 Sinus arrhythmia no longer present Electronically Signed On 02-20-2025 08:43:14 CDT by Bruce Gallardo M.D. [email or web address] [id number]
== END 2025-02-18 21:09 | disposition left against medical advice (07) ==
PROVIDERS: Emergency Provider Family Medicine; PCP Physical Medicine & Rehabilitation Sports Medicine
DX: Z53.21 Procedure and treatment not carried out due to patient leaving prior to being seen by health care provider (principal); I51.7 Cardiomegaly; Z95.9 Presence of cardiac and vascular implant and graft, unspecified; R07.89 Other chest pain
CPT/HCPCS: 71045; 93005

== ENCOUNTER 2025-02-19 10:00 | Oncology outpatient (recurring) (ONCR) | payer OTHER, SELFPAY ==
[2025-01-30 10:19] VITALS: BP 117/60; PULSE 84; RESP 17; TEMP 36.6; O2SAT 98
[2025-01-30] MEDS: ertapenem 1,000 mg SDV 1000 MG IVP (10:26)
[2025-01-31 10:03] VITALS: BP 125/75; PULSE 82; RESP 18; TEMP 36.8; O2SAT 97
[2025-01-31] MEDS: ertapenem 1,000 mg SDV 1000 MG IVP (10:06)
[2025-02-01] MEDS: ertapenem 1,000 mg SDV 1000 MG IVP (11:58)
[2025-02-01 12:07] VITALS: BP 122/79; PULSE 86; TEMP 36.9; O2SAT 96
[2025-02-02] MEDS: ertapenem 1,000 mg SDV 1000 MG IVP (12:34)
[2025-02-02 12:44] LABS: Hematocrit 45.6 % (37-53); Hemoglobin 15.30 g/dL (11.27-16.99); Mean Corpuscular HGB Conc 33.6 g/dL (30-55); Mean Corpuscular Hemoglobin 30.8 pg (27-33); Mean Corpuscular Volume 91.9 fl (82-101); Nucleated Red Blood Cells % 0 %; Platelet Count 277 10^3/cmm (157-399); Red Blood Count 4.96 10^6/uL (3.85-5.65); White Blood Count 13.03 10^3/uL (3.29-11.43)
[2025-02-02 13:25] LABS: Alanine Aminotransferase 24 U/L (0-41); Albumin Level 4.2 g/dL (3.5-5.2); Alkaline Phosphatase 91 U/L (40-130); Anion Gap 19.2 (5-19); Aspartate Amino Transferase 20 U/L (0-40); Blood Urea Nitrogen 11 mg/dL (6-20); Calcium 9.4 mg/dL (8.5-10.5); Carbon Dioxide 21 mmol/L (22-29); Chloride 102 mmol/L (98-107); Globulin 3.5 g/dL (1.3-4.6); Glucose 180 mg/dL (65-115); Osmolality Calculated 290 mOsm/kg (285-295); Potassium 4.2 mmol/L (3.5-5.1); Sodium 138 mmol/L (136-145); Total Protein 7.7 g/dL (6.6-8.7)
[2025-02-05 13:53] VITALS: BP 115/80; PULSE 87; RESP 16; TEMP 36.7; O2SAT 96
[2025-02-05 14:04] LABS: Glucose Urine UA Negative (Normal); Nitrate Urine Negative (Negative); Specific Gravity, Urine 1.015 (1.005-1.030)
[2025-02-19 10:42] VITALS: BP 118/63; PULSE 78; TEMP 36.7; O2SAT 98
== END 2025-02-28 23:59 | disposition home or self-care (01) ==
PROVIDERS: Internal Medicine; PCP Physical Medicine & Rehabilitation Sports Medicine; Visit Provider Family Medicine
DX: Z53.9 Procedure and treatment not carried out, unspecified reason; Z45.2 Encounter for adjustment and management of vascular access device
CPT/HCPCS: 80053; 81001; 85025; 85651; 86140; 96374; J1335

== ENCOUNTER 2025-03-11 08:46 | Outpatient (CLI) | payer OTHER, SELFPAY ==
--- NOTE | 2025-03-11 08:53 | CT_ITS ---
WS: [id number] CT ABDOMEN AND PELVIS WITH AND WITHOUT CONTRAST HISTORY: Hematuria and intermittent bloody stools. TECHNIQUE: Multiphase imaging through the abdomen and pelvis. Unenhanced 3 mm axial imaging first performed through the abdomen. Post contrast imaging through the abdomen and pelvis. Oral contrast has not been provided. Sagittal and coronal reformats are submitted. All CT scans at [facility] use at least one of these dose optimization techniques: automated exposure control; mA and/or kV adjustment per patient size (includes targeted exams where dose is matched to clinical indication); or iterative reconstruction. CONTRAST: Omnipaque 350; 95 mL IV. DLP: 3266.75 mGy.cm COMPARISON: 01/13/2025, 11/30/2024 Lung bases are clear. Heart size is normal. Very small hiatal hernia. Mild hepatic steatosis. No intrahepatic duct dilatation. Normal portal vein. Normal gallbladder and spleen. Normal pancreas and adrenal glands. RIGHT kidney: Normal size kidney with no obstruction. There is a tiny cortical hypodensity measuring 3 mm seen on the delayed postcontrast imaging in the upper pole which is probably a cyst. No solid mass or renal stone. No ureteral obstruction. LEFT kidney: Normal size kidney with a nonobstructing 3 mm calcification in the upper pole. Normal renal enhancement. No cyst or solid mass. Normal ureter. Normal aorta. Normal mesenteric arteries. Stomach is not distended. No small bowel obstruction. Normal appendix. No diverticulitis. No pericolonic inflammation or stranding. No significant colitis or wall thickening. There is mild mesenteric fat infiltration with stranding and a pseudocapsule centered in the mid abdomen. There are a few tiny lymph nodes within the mesentery associated with the mesenteric inflammation. There is mild encasement of the mesenteric arteries but no obstruction. No ascites. No enlarged lymph nodes. Prostate is not enlarged. Tiny abdominal wall hernia containing fat. No inguinal hernias. No bone destruction. CT/CT abdomen pelvis wo/w [id number] IMPRESSION: 1. No GI tract obstruction or colitis. 2. Normal appendix. 3. No renal obstruction or solid mass. 4. Nonobstructing 3 mm calcification upper pole LEFT kidney. No uroepithelial lesions. 5. Mild early changes of sclerosing mesenteritis. New since 01/13/2025. There a re a few small central mesenteric lymph nodes. 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 May be related to prior surgery, traum a or infection, malignancy or autoimmune disease.
[2025-03-11] MEDS: iohexol 350 mg/mL 500 mL Btl (per mL) IV (09:19)
== END 2025-03-11 08:47 | disposition home or self-care (01) ==
LOC: RAD 08:47
PROVIDERS: PCP Physical Medicine & Rehabilitation Sports Medicine; Visit Provider Student in an Organized Health Care Education/Training Program
DX: N41.9 Inflammatory disease of prostate, unspecified (principal); R31.9 Hematuria, unspecified
CPT/HCPCS: 74178

== ENCOUNTER 2025-03-29 09:29 | Outpatient (CLI) | payer OTHER, SELFPAY | END 2025-03-29 09:30 | disposition home or self-care (01) | LOC: RAD 09:32 | PROVIDERS: PCP Physical Medicine & Rehabilitation Sports Medicine; Visit Provider Internal Medicine | DX: D72.829 Elevated white blood cell count, unspecified (principal); R68.83 Chills (without fever) | CPT/HCPCS: 93306 ==

== ENCOUNTER 2025-04-16 11:30 | Outpatient (CLI) | payer OTHER, SELFPAY | END 2025-04-16 11:31 | disposition home or self-care (01) | PROVIDERS: PCP Physical Medicine & Rehabilitation Sports Medicine; Visit Provider Physical Medicine & Rehabilitation Sports Medicine | DX: Z01.89 Encounter for other specified special examinations (principal); Z16.12 Extended spectrum beta lactamase (ESBL) resistance | CPT/HCPCS: 87324 ==